=== PATIENT | male | born 1975 | race Caucasian/White ===

== ENCOUNTER 2016-12-26 15:29 | Emergency (ER) | payer OTHER ==
--- NOTE | 2016-12-26 15:42 | ER Document Report ---
Doctor's Note Notes: 12/26/16 15:41 Patient noted ot have hx of binge drinking episodes, ptsd. Notified that EMS was called out for dehydration but patient required 30 minutes of deescalation and Mobile crisis being involved.
--- NOTE | 2016-12-26 16:19 | ER Document Report ---
ED General <DORCAS MISHRA - Last Filed: 12/26/16 23:17> - General Mode of Arrival: Medic Information source: Patient TRAVEL OUTSIDE OF THE U.S. IN LAST 30 DAYS: No <JENNIFER MARTINEZ - Last Filed: 12/28/16 22:46> - General Chief Complaint: Heat Exposure Stated Complaint: WEAKNESS Time Seen by Provider: 12/26/16 16:08 Notes: 41-year-old male found in vehicle asleep [employer]. When EMT got to him he was combative, he did clam down after a few minutes, EMT's talked with him on the scene for 1.5 hours got mobile crisis ([facility]) -they can see him tomorro2 (for mental health cases). Pio called Soledad FLOYD and she does not want to be involved with him anymore. He stated to me that he had been drinking today but will give me no other information. [facility] He states that wasn't right that I came in and talked to him and states God help you, " God will help you." Face is flushed and IV fluid is infusing vital signs are stable. Consult dr. black who states to get a psych consult. Binge drinks per EMT,( PTSD)about 1-2 times per month. Pt states he has been to [facility] , no c/o pain. For physical exam, and when I realized that he was not talking with me, I had PCT Farhana come into the room. (JENNIFER MARTINEZ) - Related Data Allergies/Adverse Reactions: No Known Allergies Allergy (Verified 08/16/15 16:18) Past Medical History - General Information source: Patient - Social History Smoking Status: Never Smoker Chew tobacco use (# tins/day): Yes Frequency of alcohol use: Heavy Drug Abuse: None Family History: Reviewed & Not Pertinent, Other Neurological Medical History: Reports: Hx Seizures GI Medical History: Reports: Hx Gastroesophageal Reflux Disease - SINCE 8 MONTHS , Hx Hiatal Hernia Psychiatric Medical History: Reports: Hx Anxiety - DX 4 MONTHS AGO, Hx Depression - DX 4 MONTHS AGO Comment Only: Hx Post Traumatic Stress Disorder - BEING TESTED Past Surgical History: Reports: Hx Orthopedic Surgery - RT knee, hand, Hx Thyroid Surgery - Immunizations Hx Diphtheria, Pertussis, Tetanus Vaccination: Yes <JENNIFER MARTINEZ - Last Filed: 12/28/16 22:46> Review of Systems - Review of Systems Constitutional: No symptoms reported EENT: No symptoms reported Cardiovascular: No symptoms reported Respiratory: No symptoms reported Gastrointestinal: No symptoms reported Genitourinary: No symptoms reported Male Genitourinary: No symptoms reported Musculoskeletal: No symptoms reported Skin: No symptoms reported Hematologic/Lymphatic: No symptoms reported Neurological/Psychological: See HPI <JENNIFER MARTINEZ - Last Filed: 12/28/16 22:46> Physical Exam <DORCAS MISHRA - Last Filed: 12/26/16 23:17> - Vital signs Interpretation: Normal - General General appearance: Alert, Other - Will not maintain eye contact and does not want to answer questions for the history - HEENT Head: Normocephalic, Atraumatic Eyes: Normal Conjunctiva: Normal - all my God I contacted here and dictate with my unbelievable Pupils: PERRL Nerve palsy: No Mucous membranes: Normal Neck: Supple - Respiratory Respiratory status: No respiratory distress Chest status: Nontender Breath sounds: Normal Chest palpation: Normal - Cardiovascular Rhythm: Regular Heart sounds: Normal auscultation Murmur: No - Abdominal Inspection: Normal Distension: No distension Bowel sounds: Normal Tenderness: Nontender. No: Tender Organomegaly: No organomegaly - Back Back: Normal, Nontender. No: CVA tenderness - Extremities General upper extremity: Normal inspection, Nontender, Normal color, Normal ROM , Normal temperature General lower extremity: Normal inspection, Nontender, Normal color, Normal ROM , Normal temperature, Normal weight bearing. No: Analia's sign - Neurological Neuro grossly intact: Yes Cognition: Normal Orientation: AAOx4 Bird Coma Scale Eye Opening: Spontaneous [place] Coma Scale Verbal: Oriented Bird Coma Scale Motor: Obeys Commands Bird Coma Scale Total: 15 Speech: Normal Motor strength normal: LUE, RUE, LLE, RLE Sensory: Normal - Psychological Associated symptoms: Normal affect, Normal mood - Skin Skin Temperature: Warm Skin Moisture: Dry Skin Color: Normal Skin irregularity: negative: Rash <JENNIFER MARTINEZ - Last Filed: 12/28/16 22:46> - Vital signs Vitals: Resp Pulse Ox 19 95 12/26/16 15:43 12/26/16 15:43 - General Notes: Flushed cheeks (JENNIFER MARTINEZ) Course - Laboratory Result Diagrams: 12/26/16 15:48 12/26/16 15:48 <DORCAS MISHRA - Last Filed: 12/26/16 23:17> - Laboratory Result Diagrams: 12/26/16 15:48 12/26/16 15:48 <JENNIFER MARTINEZ - Last Filed: 12/28/16 22:46> - Re-evaluation Re-evalutation: 12/26/16 23:17 Patient can walk a straight line and talk normally without slurring, clinically sober, continues to ask for things such as food and blankets. Patient can safely be discharged. (DORCAS MISHRA) 12/26/16 16:28 He motioned to an EMT that brought him in and states he never told me anything, that I read the chart. I asked him if he would like, nerve medicine and he said he would love that. He states that I am a liar. The EMT is trying to keep the patient calmed. 12/26/16 17:[address] adams, pt can stay until he is "clinically sober", walking, talking, oriented. He ate dinner, asking for more ativan. 12/26/16 19:05 Care transferred to MONICA Gates. (JENNIFER MARTINEZ) - Vital Signs Vital signs: Temp Pulse Resp BP Pulse Ox 97.4 F 71 16 126/81 H 97 12/26/16 23:14 12/26/16 23:14 12/26/16 23:14 12/26/16 23:14 12/26/16 23:14 - Laboratory Laboratory results interpreted by me: 12/26/16 12/26/16 12/26/16 15:48 15:48 15:48 MCH 25.9 L RDW 16.6 H Sodium 147.4 H Glucose 111 H Creatine Kinase 284 H Urine Protein Salicylates < 1.0 L Acetaminophen < 10 L Serum Alcohol 321 H* 12/26/16 16:55 MCH RDW Sodium Glucose Creatine Kinase Urine Protein 30 H Salicylates Acetaminophen Serum Alcohol Discharge <DORCAS MISHRA - Last Filed: 12/26/16 23:17> <JENNIFER MARTINEZ - Last Filed: 12/28/16 22:46> - Discharge Clinical Impression: Alcohol intoxication Qualifiers: Complication of substance-induced condition: with unspecified complication Qualified Code(s): F10.929 - Alcohol use, unspecified with intoxication, unspecified Condition: Stable Disposition: HOME, SELF-CARE Additional Instructions: Please stop drinking alcohol. Return immediately for any new or worsening symptoms. Follow up with primary care provider, call tomorrow to make followup appointment.
[2016-12-26] MEDS ORDERED: NORMAL SALINE 1000 ML 1,000 ML IV ONE (16:27)
[2016-12-26] MEDS ORDERED: LORAZEPAM INJ 2 MG/1 ML VIAL IV ONE (16:27)
[2016-12-26 16:35] LABS: ALANINE AMINOTRANSFERASE 51 U/L (21-72); ALBUMIN 4.2 g/dL (3.5-5.0); ALKALINE PHOSPHATASE 101 U/L (38-126); ANION GAP 15 (5-19); ASPARTATE AMINO TRANSFERASE 36 U/L (17-59); BILIRUBIN,DIRECT 0.4 mg/dL (0.0-0.4); BLOOD UREA NITROGEN 10 mg/dL (7-20); CALCIUM 8.6 mg/dL (8.4-10.2); CARBON DIOXIDE 25 mmol/L (22-30); CHLORIDE 107 mmol/L (98-107); CREATININE RESULT 1.07 mg/dL (0.52-1.25); GLUCOSE 111 mg/dL (75-110); POTASSIUM 4.4 mmol/L (3.6-5.0); SODIUM 147.4 mmol/L (137-145); TOTAL PROTEIN 7.7 g/dL (6.3-8.2)
[2016-12-26 16:49] LABS: ABSOLUTE BASOPHILS # (AUTO) 0.1 10^3/uL (0.0-0.2); ABSOLUTE EOSINOPHILS # (AUTO) 0.1 10^3/uL (0.0-0.6); ABSOLUTE MONOCYTES (AUTO) 0.5 10^3/uL (0.1-1.4); ABSOLUTE NEUT (AUTO) 5.3 10^3/uL (1.7-8.2); BASOPHILS % (AUTO) 0.6 % (0-2); EOSINOPHILS % (AUTO) 1.2 % (0-6); HEMATOCRIT 43.4 % (37.9-51.0); HEMOGLOBIN 13.9 g/dL (13.5-17.0); HGB HCT DIFFERENCE -1.7; LYMPHOCYTES % (AUTO) 32.9 % (13-45); MEAN CORPUSCULAR HEMOGLOBIN 25.9 pg (27.0-33.4); MEAN CORPUSCULAR VOLUME 81 fl (80-97); MONOCYTES % (AUTO) 5.8 % (3-13); RED BLOOD COUNT 5.35 10^6/uL (4.35-5.55); RED CELL DISTRIBUTION WIDTH 16.6 % (11.5-14.0); SEGMENTED NEUTROPHILS % (AUTO) 59.5 % (42-78)
[2016-12-26 16:57] LABS: ALCOHOL 321 mg/dL (NONE DETECTED)
--- NOTE | 2016-12-26 17:41 | PSYCHOLOGICAL NOTE ---
Psych Note - Psych Note Psych Note: Patient is a 41 year old male who presents via EMS, after [employer] found the patient "passed out" in his parked vehicle. Patient is acutely intoxicated at this time with a BAL of 300+. Patient states he is getting better, but "could use some more pills." Patient does have prior episodes here in the Department due to alcohol related episodes, and PTSD. Patient will be reevaluated closer to clinical sobriety. Will track.
[2016-12-26] MEDS ORDERED: LORAZEPAM 1 MG TABLET PO ONE (17:57)
[2016-12-26 18:27] LABS: URINE BARBITURATES SCREEN NEGATIVE; URINE METHADONE SCREEN NEGATIVE; URINE OPIATES LOW NEGATIVE; URINE PHENCYCLIDINE SCREEN NEGATIVE
[2016-12-26 18:28] LABS: APPEARANCE,URINE CLEAR; BILIRUBIN,URINE NEGATIVE (NEGATIVE); GLUCOSE, URINE NEGATIVE (NEGATIVE); KETONES,URINE NEGATIVE (NEGATIVE); LEUKOCYTE ESTERASE,URINE NEGATIVE (NEGATIVE); NITRITE,URINE NEGATIVE (NEGATIVE); PROTEIN,URINE 30 mg/dL (NEGATIVE); UROBILINOGEN,URINE NEGATIVE mg/dL (<2.0)
--- NOTE | 2016-12-26 22:10 | EKG REPORT ---
SEVERITY:- ABNORMAL ECG - SINUS RHYTHM LEFT ANTERIOR FASCICULAR BLOCK CONSIDER RIGHT VENTRICULAR HYPERTROPHY : Confirmed by: Kathya Carnes MD 26-Dec-2016 22:10:03
[2016-12-26 23:36] VITALS: BP 126/81
== END 2016-12-26 23:25 | disposition home or self-care (01) ==
LOC: ER 15:29
DX: F10.929 Alcohol use, unspecified with intoxication, unspecified (principal); R53.1 Weakness; X32.XXXA Exposure to sunlight, initial encounter
CPT/HCPCS: 93005; 99285; 96374; 36415; 80307 ×4; 82550; 85025; 80053; 81001; 93010; J2060; J7030

== ENCOUNTER 2017-03-11 15:53 | Emergency (ER) | payer OTHER ==
[2017-03-11 16:01] VITALS: BP 145/107
[2017-03-11] MEDS ORDERED: LORAZEPAM INJ 2 MG/1 ML VIAL IV ONE (16:18)
[2017-03-11] MEDS ORDERED: THIAMINE HCL 100 MG, FOLIC ACID 1 MG in NORMAL SALINE 50 ML IV ONE (16:18)
[2017-03-11] MEDS ORDERED: NORMAL SALINE 1000 ML 1,000 ML IV PRN (16:18)
--- NOTE | 2017-03-11 16:23 | ER Document Report ---
ED Medical Screen (RME) - General Chief Complaint: Alcohol Withdrawl Stated Complaint: DETOX AND CHEST PAIN Time Seen by Provider: 03/11/17 16:09 Mode of Arrival: Ambulatory Information source: Patient TRAVEL OUTSIDE OF THE U.S. IN LAST 30 DAYS: No - HPI Patient complains to provider of: Alcohol withdrawal, left-sided chest Onset: This morning Onset/Duration: Gradual Quality of pain: Achy Severity: Moderate Pain Level: 3 Exacerbated by: Denies Relieved by: Denies Similar symptoms previously: Yes Recently seen / treated by doctor: No Notes: 03/11/17 16:22 Patient is a 42-year-old male with history of mental illness and alcohol dependence, who presents to the emergency room requesting assistance with detox from alcohol, states he is set to go to a rehab program [place] of state on [place] of this week, he attempted to stop drinking on his own at home over the last 24 hours, however this morning he developed withdrawal symptoms including shakiness, left-sided chest pain radiating down his left arm, so he had a drink approximately 1 hour prior to coming to the emergency room with friends who encouraged him to come so that he can get stabilized to go to rehab in a few days - Related Data Allergies/Adverse Reactions: No Known Allergies Allergy (Verified 03/11/17 16:01) Past Medical History Neurological Medical History: Reports: Hx Seizures Renal/ Medical History: Denies: Hx Peritoneal Dialysis GI Medical History: Reports: Hx Gastroesophageal Reflux Disease - SINCE 8 MONTHS , Hx Hiatal Hernia Psychiatric Medical History: Reports: Hx Anxiety - DX 4 MONTHS AGO, Hx Depression - DX 4 MONTHS AGO Comment Only: Hx Post Traumatic Stress Disorder - BEING TESTED Past Surgical History: Reports: Hx Orthopedic Surgery - RT knee, hand, Hx Thyroid Surgery - Immunizations Hx Diphtheria, Pertussis, Tetanus Vaccination: Yes Physical Exam - Vital signs Vitals: Temp Pulse Resp BP Pulse Ox 98.9 F 108 H 20 145/107 H 96 03/11/17 16:01 03/11/17 16:01 03/11/17 16:01 03/11/17 16:01 03/11/17 16:01 Course - Vital Signs Vital signs: Temp Pulse Resp BP Pulse Ox 98.9 F 108 H 20 145/107 H 96 03/11/17 16:01 03/11/17 16:01 03/11/17 16:01 03/11/17 16:01 03/11/17 16:01
[2017-03-11 16:50] LABS: ABSOLUTE LYMPHOCYTES (AUTO) 2.2 10^3/uL (0.5-4.7); ABSOLUTE MONOCYTES (AUTO) 0.4 10^3/uL (0.1-1.4); ABSOLUTE NEUT (AUTO) 5.1 10^3/uL (1.7-8.2); BASOPHILS % (AUTO) 0.5 % (0-2); EOSINOPHILS % (AUTO) 0.3 % (0-6); HEMATOCRIT 42.3 % (37.9-51.0); HEMOGLOBIN 14.1 g/dL (13.5-17.0); LYMPHOCYTES % (AUTO) 28.8 % (13-45); MEAN CORPUSCULAR HEMOGLOBIN 27.5 pg (27.0-33.4); MEAN CORPUSCULAR HGB CONC 33.4 g/dL (32.0-36.0); MEAN CORPUSCULAR VOLUME 82 fl (80-97); MONOCYTES % (AUTO) 4.8 % (3-13); RED BLOOD COUNT 5.14 10^6/uL (4.35-5.55); RED CELL DISTRIBUTION WIDTH 20.5 % (11.5-14.0); SEGMENTED NEUTROPHILS % (AUTO) 65.6 % (42-78); WHITE BLOOD COUNT 7.7 10^3/uL (4.0-10.5)
[2017-03-11 17:11] LABS: ALANINE AMINOTRANSFERASE 56 U/L (21-72); ALBUMIN 5.1 g/dL (3.5-5.0); ALKALINE PHOSPHATASE 94 U/L (38-126); ANION GAP 19 (5-19); ASPARTATE AMINO TRANSFERASE 46 U/L (17-59); BILIRUBIN,DIRECT 0.3 mg/dL (0.0-0.4); BILIRUBIN,TOTAL 0.9 mg/dL (0.2-1.3); BLOOD UREA NITROGEN 13 mg/dL (7-20); CALCIUM 9.4 mg/dL (8.4-10.2); CARBON DIOXIDE 23 mmol/L (22-30); CHLORIDE 101 mmol/L (98-107); CREATINE KINASE 389 U/L (55-170); CREATININE RESULT 1.08 mg/dL (0.52-1.25); GLUCOSE 140 mg/dL (75-110); SODIUM 142.7 mmol/L (137-145); TOTAL PROTEIN 8.5 g/dL (6.3-8.2)
[2017-03-11 17:20] LABS: ALCOHOL 389 mg/dL (NONE DETECTED)
[2017-03-11 17:22] LABS: CREATINE KINASE MB 2.19 ng/mL (<4.55)
[2017-03-11 17:23] LABS: TROPONIN I < 0.012 ng/mL
--- NOTE | 2017-03-11 17:39 | RADIOLOGY REPORT (SQ) ---
EXAM DESCRIPTION: CT HEAD WITHOUT COMPLETED DATE/TIME: 03/11/2017 5:26 pm REASON FOR STUDY: MITCHELL COMPARISON: 2014 TECHNIQUE: Axial images acquired through the brain without intravenous contrast. Images reviewed wi th bone, brain and subdural windows. Images stored on PACS. All CT scanners at this facility use dose modulation, iterative reconstruction, and/or weight based d osing when appropriate to reduce radiation dose to as low as reasonably achievable (ALARA). [facility]: Dose Right [facility]: CareDose [facility]: Dose Right [facility]: Teradose 4D [facility]: Smart Woop!Wear RADIATION DOSE: Up-to-date CT equipment and radiation dose reduction techniques were employed. CTDIv ol: 64.6 mGy. DLP: 1163 mGy-cm. mGy. LIMITATIONS: None. FINDINGS: VENTRICLES: Normal size and contour. CEREBRUM: No masses. No hemorrhage. No midline shift. Normal seaman/white matter differentiation. N o evidence for acute infarction. CEREBELLUM: No masses. No hemorrhage. No alteration of density. No evidence for acute infarction. EXTRAAXIAL SPACES: No fluid collections. No masses. ORBITS AND GLOBE: No intra- or extraconal masses. Normal contour of globe without masses. CALVARIUM: No fracture. PARANASAL SINUSES: No fluid or mucosal thickening. SOFT TISSUES: No mass or hematoma. OTHER: No other significant finding. IMPRESSION: NORMAL BRAIN CT WITHOUT CONTRAST. TECHNICAL DOCUMENTATION: JOB ID: [id number] Quality ID # [id number]: Final reports with documentation of one or more dose reduction techniques (e.g., Au tomated exposure control, adjustment of the mA and/or kV according to patient size, use of iterative reconstruction technique) 2010 [employer]- All Rights Reserved
--- NOTE | 2017-03-11 17:39 | RADIOLOGY REPORT (SQ) ---
EXAM DESCRIPTION: CHEST PA/LAT COMPLETED DATE/TIME: 03/11/2017 5:29 pm REASON FOR STUDY: palpitations COMPARISON: 01/20/2013 EXAM PARAMETERS: NUMBER OF VIEWS: two views TECHNIQUE: Digital Frontal and Lateral radiographic views of the chest acquired. RADIATION DOSE: NA LIMITATIONS: none FINDINGS: LUNGS AND PLEURA: No opacities, masses or pneumothorax. No pleural effusion. MEDIASTINUM AND HILAR STRUCTURES: No masses or contour abnormalities. HEART AND VASCULAR STRUCTURES: Heart normal size. No evidence for failure. BONES: No acute findings. HARDWARE: None in the chest. OTHER: No other significant finding. IMPRESSION: NO SIGNIFICANT RADIOGRAPHIC FINDING IN THE CHEST. TECHNICAL DOCUMENTATION: JOB ID: [id number] [employer]- All Rights Reserved
--- NOTE | 2017-03-11 18:06 | ER Document Report ---
ED Substance Abuse / Acc. OD - General Mode of Arrival: Ambulatory Information source: Patient TRAVEL OUTSIDE OF THE [place]. IN LAST 30 DAYS: No - HPI Patient complains to provider of: Alcohol abuse Onset: Other - 2 weeks Onset/Duration: Persistent Quality of pain: Achy Pain Level: 2 Situational problems related to: Significant other Overdose of: Alcohol Associated Symptoms: Nausea/vomiting, Headache, Other - numb sensation. denies : Fever/chills/sweaty, Chest pain/discomfort, Hurts to breathe, Vomiting blood Similar symptoms previously: Yes - detox Recently seen / treated by doctor: No <AMY LEDESMA - Last Filed: 03/11/17 21:36> <ALONSO CUMMINS - Last Filed: 03/11/17 22:08> - General Chief Complaint: Alcohol Withdrawl Stated Complaint: DETOX AND CHEST PAIN Time Seen by Provider: 03/11/17 16:09 Notes: Patient presents requesting detox. Patient states that he has been drinking 2 bottles of wine a day for the past several weeks. Patient does report a recent breakup with his significant other that started 6 weeks ago. Patient states that he is attempting to get into an inpatient detox facility in [place] but he does not fly out until Sunday of next week. Patient reports that around 11:00 today he had some palpitations and he felt like his left arm and left leg were numb. Patient states the numbness sensation lasted for 1 hour and then resolved. Patient reports he did vomit one time earlier today but has not had any vomiting since then. Patient complains of right-sided headache pain that started yesterday and has been off and on. (AMY LEDESMA) - Related Data Allergies/Adverse Reactions: No Known Allergies Allergy (Verified 03/11/17 16:01) Past Medical History - General Information source: Patient - Social History Smoking Status: Never Smoker Chew tobacco use (# tins/day): No Frequency of alcohol use: Heavy Drug Abuse: None Occupation: none Lives with: Alone Family History: Reviewed & Not Pertinent, Other Neurological Medical History: Reports: Hx Seizures Renal/ Medical History: Denies: Hx Peritoneal Dialysis GI Medical History: Reports: Hx Gastroesophageal Reflux Disease - SINCE 8 MONTHS , Hx Hiatal Hernia Psychiatric Medical History: Reports: Hx Anxiety - DX 4 MONTHS AGO, Hx Depression - DX 4 MONTHS AGO Comment Only: Hx Post Traumatic Stress Disorder - BEING TESTED Past Surgical History: Reports: Hx Orthopedic Surgery - RT knee, hand, Hx Thyroid Surgery - Immunizations Hx Diphtheria, Pertussis, Tetanus Vaccination: Yes <AMY LEDESMA - Last Filed: 03/11/17 21:36> Review of Systems - Review of Systems Constitutional: No symptoms reported. denies: Fever, Recent illness EENT: No symptoms reported Cardiovascular: Palpitations. denies: Chest pain, Dizziness Respiratory: No symptoms reported. denies: Cough, Short of breath Gastrointestinal: Nausea, Vomiting. denies: Abdominal pain, Diarrhea Genitourinary: No symptoms reported Male Genitourinary: No symptoms reported Musculoskeletal: No symptoms reported. denies: Back pain Skin: No symptoms reported Hematologic/Lymphatic: No symptoms reported Neurological/Psychological: Headaches, Numbness - for 1 hour to LUE, LLE. denies: Weakness <AMY LEDESMA - Last Filed: 03/11/17 21:36> Physical Exam - General General appearance: Appears well, Alert In distress: None - HEENT Head: Normocephalic, Atraumatic Eyes: Normal Conjunctiva: Normal Extraocular movements intact: Yes Eyelashes: Normal Pupils: PERRL Ears: Normal External canal: Normal Sinus: Normal Nasal: Normal Mouth/Lips: Normal Mucous membranes: Normal Pharynx: Normal Neck: Normal, Supple. No: Lymphadenopathy - Respiratory Respiratory status: No respiratory distress Chest status: Nontender Breath sounds: Normal. No: Rales, Rhonchi, Stridor, Wheezing Chest palpation: Normal - Cardiovascular Rhythm: Tachycardia Heart sounds: S1 appreciated, S2 appreciated Murmur: No - Abdominal Inspection: Normal Distension: No distension Bowel sounds: Normal Tenderness: Nontender - Back Back: Normal, Nontender. No: CVA tenderness, Vertebra tenderness - Extremities General upper extremity: Normal inspection, Normal ROM, Normal strength General lower extremity: Normal inspection, Normal ROM, Normal strength - Neurological Neuro grossly intact: Yes Cognition: Normal Orientation: AAOx4 [place] Coma Scale Eye Opening: Spontaneous Bird Coma Scale Verbal: Oriented Bird Coma Scale Motor: Obeys Commands [place] Coma Scale Total: 15 Speech: Normal. No: Dysarthria Cranial nerves: Normal. No: Facial palsy, Tongue deviation Cerebellar coordination: Normal, Heel-martinez, Finger-nose rhombey, Rapid alt. movements. 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 No: Weakness, Hemiplegia - Psychological Associated symptoms: Other - occasional pressured speech - Skin Skin Temperature: Warm Skin Moisture: Dry Skin Color: Normal <AMY LEDESMA - Last Filed: 03/11/17 21:36> Course - Laboratory Result Diagrams: 03/11/17 16:30 03/11/17 16:30 <AMY LEDESMA - Last Filed: 03/11/17 21:36> - Laboratory Result Diagrams: 03/11/17 16:30 03/11/17 16:30 <ALONSO CUMMINS - Last Filed: 03/11/17 22:08> - Re-evaluation Re-evalutation: 03/11/17 20:44 Patient updated regarding plan of care. Patient denies any complaints at present. Bedside report and handoff given to Maris Cummins CLINICAL LEADER (AMY LEDESMA) 03/11/17 22:07 Has a friend , Erick Styleser at the bedside whom has agreed to take the patient home and be responsible for him until 8:00 in the morning when he will follow- up with [facility]. Mental health resource sheet given to patient follow-up. ( ALONSO CUMMINS) - Vital Signs Vital signs: Temp Pulse Resp BP Pulse Ox 98.9 F 108 H 20 145/107 H 96 03/11/17 16:01 03/11/17 16:01 03/11/17 16:01 03/11/17 16:01 03/11/17 16:01 - Laboratory Laboratory results interpreted by me: 03/11/17 03/11/17 03/11/17 16:30 16:30 16:30 RDW 20.5 H Glucose 140 H Creatine Kinase 389 H Total Protein 8.5 H Albumin 5.1 H TSH 4.69 H Urine Protein Urine Blood Salicylates < 1.0 L Acetaminophen < 10 L Serum Alcohol 389 H* 03/11/17 17:38 RDW Glucose Creatine Kinase Total Protein Albumin TSH Urine Protein 30 H Urine Blood SMALL H Salicylates Acetaminophen Serum Alcohol Discharge <AMY LEDESMA - Last Filed: 03/11/17 21:36> <ALONSO CUMMINS - Last Filed: 03/11/17 22:08> - Discharge Clinical Impression: Alcohol abuse Condition: Stable Disposition: HOME, SELF-CARE Additional Instructions: Acute Alcohol Intoxication Your evaluation revealed very high levels of alcohol. You can from drinking a large amount of alcohol rapidly! Further, there's the risk of falls , traffic accidents, and fights. A high portion (about 50 percent) of the serious injuries seen in hospital emergency rooms are caused by alcohol. Alcohol overdosage is usually due to an underlying emotional or psychiatric problem. You may benefit from counselling. If "binge" drinking is an ongoing problem for you, or if you drink ANY AMOUNT of alcohol EVERY day, you most likely have a tendency to alcoholism. You should avoid alcohol totally. We can refer you for treatment. Persons with alcohol problems are often also prone to other addictions -- you should discuss any use of medications or drugs with the doctor. You should be watched at home for the next several hours by someone who has not been drinking. Get extra fluids for the next 24 hours. Call the doctor if there is repeated vomiting, increasing headache, decreasing level of alertness, or any other worsening. Depression Your evaluation reveals that you have mental depression. While symptoms may be vague, they often include disturbance of sleep, fatigue, loss of appetite , and general loss of interest in life. While depression may be a side effect of drugs, or a reaction to a major change in your life, many cases have no known cause. If depression is acute, and related to a major loss in your life, you can expect it to clear completely with time. If you have been depressed a long time , are prone to repeated bouts of depression or low mood, or have been thinking of suicide, get help. Depression can be treated with anti-depressant medication and counselling. Long-term depression will often take a few weeks to clear, even with appropriate medication. Follow-up care is important. Contact your physician, the hospital emergency center, crisis line, or your counsellor if you are losing control or having self-destructive thoughts. Please look towards your methodist family for support and follow through with your residential plans. You have been provided a list of resources to assist you in following up locally should you chose to do so. Please return if your symptoms worsen. Follow up with [facility] at 8:00 in the morning. Please do not drink alcohol tonight. Referrals: [facility] [Provider Group] - Follow up as needed
--- NOTE | 2017-03-11 18:13 | ER Document Report ---
ED Psych Disorder / Suicide - General Chief Complaint: Alcohol Withdrawl Stated Complaint: DETOX AND CHEST PAIN Time Seen by Provider: 03/11/17 16:09 Mode of Arrival: Ambulatory Information source: Patient, [facility] Records TRAVEL OUTSIDE OF THE [place] IN LAST 30 DAYS: No - HPI Onset: Other Onset was: Cannot confirm Suicide Risk Factors: Depressed, Frightened friends/family, Male, Substance abuse - ETOH Situational problems related to: Significant other - recent break up Normal mood: Yes Associated symptoms: Normal affect, Normal mood, Anxious, Depressed - per patient Similar symptoms previously: Yes Recently seen / treated by doctor: Yes Notes: Patient is a 42 year old male who presents with friends requesting assistance with anxiety, related to ETOH withdrawal. Patient was referred for consultation due to reporting history of SI, and current depression. Patient states he has had passive thoughts in the past, but denies current thoughts. Patient states he is flying to [place] Sunday to reside in a 6 month residential alcohol program. Patient states this is a [facility] based program, secured by his restorationist. Patient states he relapsed with alcohol after a difficult breakup, and wanted to come here for detox purposes. Patient endorses depression, some of which he states is from his experiences, and some from life stressors, like the break up. Patient states he is not suicidal, nor would he attempt to harm himself. Patient reports he has numerous support individuals and feels safe in his home environment, as well as maintaining until his flight Sunday. Patient denies any prior suicide attempts. Patient endorses daily ETOH use. Patient is A&O. Mood is euthymic with normal, pleasant affect. Patient denies suicidal/homicidal ideations intent, plan, or means. Patient denies A/V H; delusions not noted. Thought processes were organized. Conversational speech was slurred. Intellectual abilities were estimated to be under the influence ( BAL 300s). Attention and focus were poor. Insight, judgment, and impulse control were poor to fair. Unspecified Alcohol Use Disorder Unspecified Depressive Disorder Patient is psychiatrically cleared for discharge. Patient is strongly encouraged to follow up with his residential program and to utilize the support of his restorationist family, which he states is his preference. Patient does not meet criteria for IVC per the [id number] as he denies SI/HI and is not experiencing command hallucinations. I consulted with Dr. Hong in regards to the care and management of this patient. ED Provider is in agreement with disposition and recommendations. - Related Data Allergies/Adverse Reactions: No Known Allergies Allergy (Verified 03/11/17 16:01) Past Medical History - General Information source: Patient - Social History Smoking Status: Never Smoker Chew tobacco use (# tins/day): No Frequency of alcohol use: Heavy Drug Abuse: None Family History: Reviewed & Not Pertinent, Other Patient has suicidal ideation: No Patient has homicidal ideation: No Neurological Medical History: Reports: Hx Seizures Renal/ Medical History: Denies: Hx Peritoneal Dialysis GI Medical History: Reports: Hx Gastroesophageal Reflux Disease - SINCE 8 MONTHS , Hx Hiatal Hernia Psychiatric Medical History: Reports: Hx Anxiety - DX 4 MONTHS AGO, Hx Depression - DX 4 MONTHS AGO Comment Only: Hx Post Traumatic Stress Disorder - BEING TESTED Past Surgical History: Reports: Hx Orthopedic Surgery - RT knee, hand, Hx Thyroid Surgery - Immunizations Hx Diphtheria, Pertussis, Tetanus Vaccination: Yes Physical Exam - Vital signs Vitals: Temp Pulse Resp BP Pulse Ox 98.9 F 108 H 20 145/107 H 96 03/11/17 16:01 03/11/17 16:01 03/11/17 16:01 03/11/17 16:01 03/11/17 16:01 Course - Vital Signs Vital signs: Temp Pulse Resp BP Pulse Ox 98.9 F 108 H 20 145/107 H 96 03/11/17 16:01 03/11/17 16:01 03/11/17 16:01 03/11/17 16:01 03/11/17 16:01 - Laboratory Result Diagrams: 03/11/17 16:30 03/11/17 16:30 Laboratory results interpreted by me: 03/11/17 03/11/17 03/11/17 16:30 16:30 16:30 RDW 20.5 H Glucose 140 H Creatine Kinase 389 H Total Protein 8.5 H Albumin 5.1 H TSH 4.69 H Salicylates < 1.0 L Acetaminophen < 10 L Serum Alcohol 389 H* Discharge - Discharge Clinical Impression: Alcohol abuse Condition: Stable Disposition: HOME, SELF-CARE Additional Instructions: Acute Alcohol Intoxication Your evaluation revealed very high levels of alcohol. You can from drinking a large amount of alcohol rapidly! Further, there's the risk of falls , traffic accidents, and fights. A high portion (about 50 percent) of the serious injuries seen in hospital emergency rooms are caused by alcohol. Alcohol overdosage is usually due to an underlying emotional or psychiatric problem. You may benefit from counselling. If "binge" drinking is an ongoing problem for you, or if you drink ANY AMOUNT of alcohol EVERY day, you most likely have a tendency to alcoholism. You should avoid alcohol totally. We can refer you for treatment. Persons with alcohol problems are often also prone to other addictions -- you should discuss any use of medications or drugs with the doctor. You should be watched at home for the next several hours by someone who has not been drinking. Get extra fluids for the next 24 hours. Call the doctor if there is repeated vomiting, increasing headache, decreasing level of alertness, or any other worsening. Depression Your evaluation reveals that you have mental depression. While symptoms may be vague, they often include disturbance of sleep, fatigue, loss of appetite , and general loss of interest in life. While depression may be a side effect of drugs, or a reaction to a major change in your life, many cases have no known cause. If depression is acute, and related to a major loss in your life, you can expect it to clear completely with time. If you have been depressed a long time , are prone to repeated bouts of depression or low mood, or have been thinking of suicide, get help. Depression can be treated with anti-depressant medication and counselling. Long-term depression will often take a few weeks to clear, even with appropriate medication. Follow-up care is important. Contact your physician, the hospital emergency center, crisis line, or your counsellor if you are losing control or having self-destructive thoughts. Please look towards your restorationist family for support and follow through with your residential plans. You have been provided a list of resources to assist you in following up locally should you chose to do so. Please return if your symptoms worsen. Referrals: [facility] [Provider Group] - Follow up as needed
[2017-03-11 18:23] LABS: APPEARANCE,URINE CLEAR; BILIRUBIN,URINE NEGATIVE (NEGATIVE); GLUCOSE, URINE NEGATIVE (NEGATIVE); KETONES,URINE NEGATIVE (NEGATIVE); LEUKOCYTE ESTERASE,URINE NEGATIVE (NEGATIVE); NITRITE,URINE NEGATIVE (NEGATIVE); PROTEIN,URINE 30 mg/dL (NEGATIVE); URINE SPECIFIC GRAVITY 1.009; UROBILINOGEN,URINE NEGATIVE mg/dL (<2.0)
[2017-03-11 18:52] LABS: FREE T3 3.33 pg/mL (2.77-5.27)
[2017-03-11 18:52] LABS: URINE BARBITURATES SCREEN NEGATIVE; URINE METHADONE SCREEN NEGATIVE; URINE OPIATES LOW NEGATIVE; URINE PHENCYCLIDINE SCREEN NEGATIVE
--- NOTE | 2017-03-12 03:32 | EKG REPORT ---
SEVERITY:- ABNORMAL ECG - SINUS TACHYCARDIA LEFT ANTERIOR FASCICULAR BLOCK : Confirmed by: Kathya Carnes MD 12-Mar-2017 03:31:27
== END 2017-03-11 22:17 | disposition home or self-care (01) ==
LOC: ER 15:53
DX: F10.10 Alcohol abuse, uncomplicated (principal); R20.0 Anesthesia of skin; R11.2 Nausea with vomiting, unspecified; R51 Headache; R00.2 Palpitations; F32.9 Major depressive disorder, single episode, unspecified
CPT/HCPCS: 93005; 99285; 96361; 96374; 96375; 36415; 84439; 82553; 80307 ×4; 82550; 83735; 84443; 85025; 80053; 81001; 84484; 84481; 71020; 70450; 93010; J3490; J2060; J3411; J7030

== ENCOUNTER 2018-06-10 15:40 | Emergency (ER) | payer OTHER ==
[2018-06-10] MEDS ORDERED: LORAZEPAM 1 MG TABLET PO ONE (17:09)
--- NOTE | 2018-06-10 17:10 | ER Document Report ---
ED Medical Screen (RME) - General Chief Complaint: Alcohol Withdrawl Stated Complaint: ETOH Time Seen by Provider: 06/10/18 17:08 Notes: 43 years old male with posttraumatic stress syndrome, was a [employer], going through a very difficult time. He thinks he is dying, at times he said he wanted end his life. Severely depressed and anxious. Using alcohol, had not washed himself for nearly 10 days. TRAVEL OUTSIDE OF THE [place] IN LAST 30 DAYS: No - Related Data Allergies/Adverse Reactions: No Known Allergies Allergy (Verified 06/10/18 15:48) Past Medical History - Social History Chew tobacco use (# tins/day): No Frequency of alcohol use: Heavy Drug Abuse: None Neurological Medical History: Reports: Hx Seizures Renal/ Medical History: Denies: Hx Peritoneal Dialysis GI Medical History: Reports: Hx Gastroesophageal Reflux Disease - SINCE 8 MONTHS , Hx Hiatal Hernia Psychiatric Medical History: Reports: Hx Anxiety - DX 4 MONTHS AGO, Hx Depression Comment Only: Hx Post Traumatic Stress Disorder - BEING TESTED Past Surgical History: Reports: Hx Orthopedic Surgery - RT knee, hand, Hx Thyroid Surgery - Immunizations Hx Diphtheria, Pertussis, Tetanus Vaccination: Yes Physical Exam - Vital signs Vitals: Temp Pulse Resp BP Pulse Ox 98.2 F 123 H 18 155/107 H 96 06/10/18 15:53 06/10/18 15:53 06/10/18 15:53 06/10/18 15:53 06/10/18 15:53 Course - Vital Signs Vital signs: Temp Pulse Resp BP Pulse Ox 98.2 F 123 H 18 155/107 H 96 06/10/18 15:53 06/10/18 15:53 06/10/18 15:53 06/10/18 15:53 06/10/18 15:53
[2018-06-10] MEDS ORDERED: LORAZEPAM INJ 2 MG/1 ML VIAL IV ONE (17:31)
[2018-06-10 17:36] LABS: ABSOLUTE EOSINOPHILS # (AUTO) 0.1 10^3/uL (0.0-0.6); ABSOLUTE LYMPHOCYTES (AUTO) 2.9 10^3/uL (0.5-4.7); ABSOLUTE MONOCYTES (AUTO) 0.5 10^3/uL (0.1-1.4); ABSOLUTE NEUT (AUTO) 3.5 10^3/uL (1.7-8.2); BASOPHILS % (AUTO) 0.6 % (0-2); EOSINOPHILS % (AUTO) 0.9 % (0-6); HEMATOCRIT 44.3 % (37.9-51.0); HEMOGLOBIN 15.2 g/dL (13.5-17.0); LYMPHOCYTES % (AUTO) 41.4 % (13-45); MEAN CORPUSCULAR HEMOGLOBIN 29.6 pg (27.0-33.4); MEAN CORPUSCULAR HGB CONC 34.3 g/dL (32.0-36.0); MEAN CORPUSCULAR VOLUME 87 fl (80-97); MONOCYTES % (AUTO) 6.7 % (3-13); PLATELET COUNT 144 10^3/uL (150-450); RED BLOOD COUNT 5.12 10^6/uL (4.35-5.55); RED CELL DISTRIBUTION WIDTH 15.3 % (11.5-14.0); SEGMENTED NEUTROPHILS % (AUTO) 50.4 % (42-78); TOTAL CELLS COUNTED % (AUTO) 100 %
[2018-06-10 17:43] LABS: APPEARANCE,URINE CLEAR; BILIRUBIN,URINE NEGATIVE (NEGATIVE); COLOR,URINE COLORLESS; GLUCOSE, URINE NEGATIVE (NEGATIVE); KETONES,URINE NEGATIVE (NEGATIVE); LEUKOCYTE ESTERASE,URINE NEGATIVE (NEGATIVE); NITRITE,URINE NEGATIVE (NEGATIVE); PROTEIN,URINE 30 mg/dL (NEGATIVE); URINE SPECIFIC GRAVITY 1.003; UROBILINOGEN,URINE NEGATIVE mg/dL (<2.0)
[2018-06-10 17:50] LABS: ALANINE AMINOTRANSFERASE 69 U/L (21-72); ALBUMIN 5.2 g/dL (3.5-5.0); ALKALINE PHOSPHATASE 99 U/L (38-126); ASPARTATE AMINO TRANSFERASE 82 U/L (17-59); BILIRUBIN,DIRECT 0.3 mg/dL (0.0-0.4); BILIRUBIN,TOTAL 1.3 mg/dL (0.2-1.3); BLOOD UREA NITROGEN 13 mg/dL (7-20); CALCIUM 9.6 mg/dL (8.4-10.2); GLUCOSE 115 mg/dL (75-110); POTASSIUM 4.9 mmol/L (3.6-5.0); TOTAL PROTEIN 9.2 g/dL (6.3-8.2)
[2018-06-10 17:53] LABS: URINE AMPHETAMINES SCREEN NEGATIVE; URINE BARBITURATES SCREEN NEGATIVE; URINE BENZODIAZEPINES SCREEN NEGATIVE; URINE COCAINE SCREEN NEGATIVE; URINE MARIJUANA (THC) SCREEN NEGATIVE; URINE METHADONE SCREEN NEGATIVE; URINE PHENCYCLIDINE SCREEN NEGATIVE
[2018-06-10 17:54] LABS: CARBON DIOXIDE 21 mmol/L (22-30); CHLORIDE 100 mmol/L (98-107); SODIUM 143.6 mmol/L (137-145)
--- NOTE | 2018-06-10 17:54 | ER Document Report ---
ED General - General TRAVEL OUTSIDE OF THE [place] IN LAST 30 DAYS: No <SHAHLA BLACK - Last Filed: 06/10/18 22:42> <TYLER SALDANA - Last Filed: 06/11/18 11:23> <SHELLY MONTAGUE - Last Filed: 06/11/18 11:47> - General Chief Complaint: Alcohol Withdrawl Stated Complaint: ETOH Time Seen by Provider: 06/10/18 17:08 Notes: 43-year-old male presents with heavy alcohol use for the past 2 weeks in the setting of PTSD anxiety and depression with thoughts of ending his life but no plan. He says "I know I am in alcohol withdrawal so I came here." His last drink was 2 hours ago and he received 2 of Ativan at triage. (SHAHLA BLACK) - Related Data Allergies/Adverse Reactions: No Known Allergies Allergy (Verified 06/10/18 15:48) Past Medical History - Social History Smoking Status: Never Smoker Chew tobacco use (# tins/day): No Frequency of alcohol use: Heavy Drug Abuse: None Family History: Reviewed & Not Pertinent, Other Patient has suicidal ideation: No Patient has homicidal ideation: No Neurological Medical History: Reports: Hx Seizures Renal/ Medical History: Denies: Hx Peritoneal Dialysis GI Medical History: Reports: Hx Gastroesophageal Reflux Disease - SINCE 8 MONTHS , Hx Hiatal Hernia Psychiatric Medical History: Reports: Hx Anxiety - DX 4 MONTHS AGO, Hx Depression Comment Only: Hx Post Traumatic Stress Disorder - BEING TESTED Past Surgical History: Reports: Hx Orthopedic Surgery - RT knee, hand, Hx Thyroid Surgery - Immunizations Hx Diphtheria, Pertussis, Tetanus Vaccination: Yes <SHAHLA BLACK - Last Filed: 06/10/18 22:42> Review of Systems <SHAHLA BLACK - Last Filed: 06/10/18 22:42> <TYLER SALDANA - Last Filed: 06/11/18 11:23> <SHELLY MONTAGUE - Last Filed: 06/11/18 11:47> - Review of Systems Notes: REVIEW OF SYSTEMS GEN: Denies fever, chills, weight loss ENT: Denies sore throat, nasal discharge, ear pain EYES: Denies blurry vision, eye pain, discharge CV: Denies chest pain, palpitations, edema RESP: Denies cough, shortness of breath, wheezing GI: Denies abdominal pain, nausea, vomiting, diarrhea MSK: Denies joint pain/swelling, edema, SKIN: Denies rash, skin lesions LYMPH: Denies swollen glands/lymph nodes NEURO: Denies headache, focal weakness or numbness, dizziness PSYCH: Pressured anxiety suicidal thoughts alcohol abuse PHYSICAL EXAMINATION General: No acute distress, well-nourished poorly groomed Head: Atraumatic, normocephalic ENT: Mouth normal, oropharynx moist, no exudates or tonsillar enlargement Eyes: Conjunctiva normal, pupils equal, lids normal Neck: No JVD, supple, no guarding CVS: Tachycardic rate, regular rhythm, no murmurs Resp: No resp distress, equal and normal breath sounds bilaterally GI: Nondistended, soft, no tenderness to palpation, no rebound or guarding Ext: No deformities, no edema, normal range of motion in upper and lower ext Back: No CVA or midline TTP Skin: No rash, warm Lymphatic: No lymphadeopathy noted Neuro: Tongue tremor. Awake, alert. Face symmetric. GCS 15. (SHAHLA BLACK) - Vital signs Vitals: Temp Pulse Resp BP Pulse Ox 98.2 F 123 H 18 155/107 H 96 06/10/18 15:53 06/10/18 15:53 06/10/18 15:53 06/10/18 15:53 06/10/18 15:53 Course - Laboratory Result Diagrams: 06/10/18 17:05 06/10/18 17:05 <SHAHLA BLACK - Last Filed: 06/10/18 22:42> - Laboratory Result Diagrams: 06/10/18 17:05 06/10/18 17:05 <TYLER SALDANA - Last Filed: 06/11/18 11:23> - Laboratory Result Diagrams: 06/10/18 17:05 06/10/18 17:05 <SHELLY MONTAGUE - Last Filed: 06/11/18 11:47> - Re-evaluation Re-evalutation: 06/10/18 17:53 43-year-old male with PTSD anxiety and depression high risk for suicide proceeding with alcohol heavy use with early withdrawal. No evidence of delirium or coingestions. Full workup was ordered at triage, on my assessment his heart rate has decreased to the 100 range and he is no longer tremulous. We will do as needed Ativan, ordered psych consult, will placed on IVC paperwork for now. 06/10/18 20:01 Patient's workup is unremarkable and he is more calm initially at around 7 PM after receiving Ativan IV. His heart rate is normal. I was approached again at 8 PM by nursing that he is being more aggressive. On assessment he is not delirious but is angry and agitated. We will give Frank IM for behavioral control and observe closely. Forgot to do IVC here 06/10/18 21:38 Patient's labs showed anion gap. This is likely alcoholic ketoacidosis and will be treated with p.o. carbohydrates as well as some dextrose containing IV fluids. 06/10/18 22:42 Sleeping comfortable he on D5 drip. Ordered CY. Stable for psych consult in the morning. (SHAHLA BLACK) - Vital Signs Vital signs: Temp Pulse Resp BP Pulse Ox 98.0 F 70 16 120/65 100 06/11/18 09:17 06/11/18 09:17 06/11/18 09:17 06/11/18 09:17 06/11/18 09:17 - Laboratory Laboratory results interpreted by me: 06/10/18 06/10/18 06/10/18 17:05 17:05 17:05 RDW 15.3 H Plt Count 144 L Carbon Dioxide 21 L Anion Gap 23 H Glucose 115 H AST 82 H Total Protein 9.2 H Albumin 5.2 H Urine Protein 30 H Urine Blood SMALL H Salicylates < 1.0 L Acetaminophen < 10 L Serum Alcohol 427 H* Critical Care Note - Critical Care Note Total time excluding time spent on procedures (mins): 31 <SHAHLA BLACK - Last Filed: 06/10/18 22:42> <TYLER SALDANA - Last Filed: 06/11/18 11:23> <SHELLY MONTAGUE - Last Filed: 06/11/18 11:47> - Critical Care Note Comments: The above patient is critically ill. Not including procedures, but including direct re-evaluations, speaking with patient and/or consultants, interpreting results, and documenting, I spent the total amount of minute listed listed above on critical care time (SHAHLA BLACK) Discharge <SHAHLA BLACK - Last Filed: 06/10/18 22:42> <TYLER SALDANA - Last Filed: 06/11/18 11:23> <SHELLY MONTAGUE - Last Filed: 06/11/18 11:47> - Discharge Clinical Impression: Depression (emotion), Alcohol intoxication Alcohol withdrawal Qualifiers: Complication of substance-induced condition: uncomplicated Qualified Code(s): F10.230 - Alcohol dependence with withdrawal, uncomplicated Condition: Stable Disposition: HOME, SELF-CARE Additional Instructions: ACUTE ALCOHOL INTOXICATION and ALCOHOL ABUSE: (Due to reported relapse after sobriety for 8 months) Your evaluation revealed very high levels of alcohol. You can from drinking a large amount of alcohol rapidly! Further, there's the risk of falls , traffic accidents, and fights. A high portion (about 50 percent) of the serious injuries seen in hospital emergency rooms are caused by alcohol. Alcohol overdosage is usually due to an underlying emotional or psychiatric problem. You may benefit from counselling. If "binge" drinking is an ongoing problem for you, or if you drink ANY AMOUNT of alcohol EVERY day, you most likely have a tendency to alcoholism. You should avoid alcohol totally. We can refer you for treatment. Persons with alcohol problems are often also prone to other addictions -- you should discuss any use of medications or drugs with the doctor. You should be watched at home for the next several hours by someone who has not been drinking. Get extra fluids for the next 24 hours. Call the doctor if there is repeated vomiting, increasing headache, decreasing level of alertness, or any other worsening. CHRONIC ALCOHOLISM and ALCOHOL ABUSE: (Due to history) Your evaluation reveals evidence of chronic alcoholism, an addiction to alcohol. The tendency to alcoholism may be inherited. Chronic use of alcohol weakens muscles, causes fatty deposits in the liver , damages the stomach, makes you more prone to infections, and can cause defects in unborn children. In the long run, brain atrophy and cirrhosis of the liver result. You are also at greater risk for certain types of cancer, such as cancer of the mouth, throat, stomach, and liver. Counselling services are available to help you. In-hospital treatment programs often help. Support groups such as Alcoholics Anonymous can be very useful in beating this addiction. Your physician can make a referral for you. As alcoholics often are prone to other addictions, you should discuss your use of any other medications with the doctor. ALCOHOL WITHDRAWAL: Your symptoms are caused by alcohol withdrawal. After a period of frequent drinking, the brain and body are changed by the alcohol. When you quit or reduce your drinking, the nervous system becomes unstable. Withdrawal symptoms can start a few hours after your last drink, but sometimes don't begin until a couple of days later. Symptoms can include shakiness, sweating, insomnia, nausea , vomiting, fearfulness, hallucinations, and seizures. In addition to the acute effects of alcohol withdrawal, we often have to deal with the medical effects of alcoholism. These problems often include dehydration, stomach irritation, intestinal bleeding, low blood sugar, liver disease, and pancreas inflammation. Treatment for alcohol withdrawal includes mild sedatives, vitamins, and fluids. You need to be with someone who can help if symptoms become severe. Many patients can withdraw at home. Admission to the hospital or a detox facility may be necessary if withdrawal symptoms are severe and uncontrollable. Abstaining from alcohol is the only effective long-term treatment. If you start drinking again, you will not be able to control yourself after the first drink. Treatment programs are available. In addition, many alcoholics benefit from Alcoholics Anonymous or other support groups available through your counselor or muslim office administration. [facility]ON and A[facility] are support groups for friends and family members of an alcoholic. Go to the emergency room if you develop persistent vomiting, severe abdominal pain, fever, shortness of breath, hallucinations, uncontrollable tremors, or seizures. DEPRESSION: Your evaluation reveals that you have mental depression. While symptoms may be vague, they often include disturbance of sleep, fatigue, loss of appetite , and general loss of interest in life. While depression may be a side effect of drugs, or a reaction to a major change in your life, many cases have no known cause. If depression is acute, and related to a major loss in your life, you can expect it to clear completely with time. If you have been depressed a long time , are prone to repeated bouts of depression or low mood, or have been thinking of suicide, get help. Depression can be treated with anti-depressant medication and counselling. Long-term depression will often take a few weeks to clear, even with appropriate medication. Follow-up care is important. SUICIDAL IDEATION: Suicidal ideation is a common medical term for thoughts about suicide, which may be as detailed as a formulated plan, without the suicidal act itself. Although most people who undergo suicidal ideation do not commit suicide, some go on to make suicide attempts. The range of suicidal ideation varies greatly from fleeting to detailed planning, role playing, and unsuccessful attempts. While thoughts about suicide are common, most people do not carry out serious actions to commit suicide. Based upon your evaluation and discussion with you, we do not believe you are currently at risk to act upon your thoughts of suicide. You have agreed to return to the Emergency Department, at any time , if you feel inclined to act upon your suicidal thoughts. FOLLOW-UP CARE: It is recommended you follow up with [facility] mobile [facility] Management ([facility]) for voluntary alcohol detox. You have been provided with the mental health outpatient resource sheet which highlighted the [facility] number for you (they can be used for crisis, talk therapy, detox placement and linkage to other services). Given your report of withdrawal symptom of seizures in the past is is highly recommended you seek medical detox. You should use natural supports (muslim) as well as professional supports ([facility], other civilian mental health resource which you can find on the local resource sheet provided, Alcoholics Anonymous). If you experience worsening or a significant change in your symptoms, notify the physician immediately, utilize mobile crisis or return to the Emergency Department at any time for re-evaluation. Referrals: [facility] [Outside] - Follow up as needed
[2018-06-10 17:57] LABS: ACETAMINOPHEN < 10 ug/mL (10-30); ANION GAP 23 (5-19); SALICYLATE < 1.0 mg/dL (2.0-20.0)
[2018-06-10 17:59] LABS: ALCOHOL 427 mg/dL (NONE DETECTED)
[2018-06-10] MEDS ORDERED: ZIPRASIDONE MESYLATE INJ/PF 20 MG SDV IM ONE (20:01)
[2018-06-10] MEDS ORDERED: DEXTROSE 5%-1/2 NORMAL SALINE 1,000 ML IV ONE (21:37)
--- NOTE | 2018-06-10 21:52 | EKG REPORT ---
SEVERITY:- ABNORMAL ECG - SINUS TACHYCARDIA LEFT ANTERIOR FASCICULAR BLOCK : Confirmed by: Kathya Carnes MD 10-Jun-2018 21:51:36
[2018-06-11] MEDS ORDERED: LORAZEPAM 1 MG TABLET PO ONE (04:20)
[2018-06-11] MEDS ORDERED: LORAZEPAM 1 MG TABLET PO PRN (04:22)
--- NOTE | 2018-06-11 04:22 | ER Document Report ---
Doctor's Note Notes: 06/11/18 04:21 Patient is having some increasing agitation, CIWA is 15, patient will be given Ativan 2 mg by mouth. Patient in moderate withdrawal.
[2018-06-11 09:18] VITALS: BP 120/65
--- NOTE | 2018-06-11 10:18 | ER Document Report ---
Doctor's Note Notes: 06/11/18 10:16 Rounds: Chart reviewed and patient interviewed. Patient being observed for alcohol withdrawal. Patient says he was sober for about 8 months and began to experience various tensions in his life recently and started back drinking about a week ago. He has a girlfriend who has a daughter that the patient has been attempting to help raise, but recently, his girlfriend has been advising him that he needs to get a job and get out of the house more, etc. Patient says he thinks he is probably going to have to leave that relationship. Vital signs are all normal. Lab studies were normal except for an alcohol level of 427. Patient is alert and cooperative and is medically stable for transfer or discharge. Kassy Beach MD
--- NOTE | 2018-06-11 16:25 | PSYCHOLOGICAL NOTE ---
Psych Note - Psych Note Date seen by psych provider: 06/11/18 Time seen by psych provider: 10:35 - Physical chart review at 0710, [employer] chart review at 1017, Evaluation lasted until 1100 Psych Note: Reason for Consult: 24 Hour Petition, ETOH abuse/withdrawal, SI, Depression, PTSD History ([place]) Contact Permissions: Unknown Patient is a 43 year old male in the ED for ETOH intoxication/abuse/withdrawal, SI, depression, PTSD history ([place]). Serum Alcohol Level was 427 upon arrival to ED (06/10/18 at 1705). Chart review revealed he has been seen at [facility] since 2014 for alcohol related issues (Serum Alcohol Level has been 389 and 321 in 2017, 311 in 2016). He was last seen by the [facility] behavioral health team on where he was discharged and instructed to follow up with residential program and [employer] as supports. He has [facility] Benefits. Today patient said he was Okay when asked how he felt. He denied current SI, did not recall making any SI statement last evening, admitted he had been frustrated with self for relapse, said he has never attempted SI and has never thought it. He stated he was embarrassed and talked about his appearance (apologized to this clinician and commented being in the presence of a good looking woman, also was concerned about appearance for trying to utilize [employer] friend for a ride). 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 He acknowledged he knows he had been drinking a lot since he filled a huge trash bag with empty wine bottles he found mainly scattered across the kitchen floor, that it was so heavy he could barely carry it out to the trash can. He said when I relapse I relapse bad, its like an allergic reaction, I cant stop. He noted having both older and younger male friends from [employer], his 19 year old son in [place] and going to the Gym as coping skills. He stated he is looking forward to all that and the [employer] Program as well as school. He stated he has Court on 06/21/18, was adamant he could not miss it and mentioned it was for breaking and entering (following it up with it is just so stupid). He stated he came to the ED for withdrawal concerns related to pain in left arm that made both fingers numb and heart racing. He acknowledged a seizure history with alcohol withdrawal. He denied being [facility] with the local [facility] currently, said he had in the past and commented he really didnt like the [facility]. He acknowledged he has full 100% VA disability. Patient was alert and oriented to person, place, and situation. He had to ask what the date was, knew there was 31 days in May and knew he had a court date coming up in June. He knew he relapsed on a Sunday however unclear what Sunday that was (so at least a week of likely binge drinking). Mood was euthymic with congruent affect. He denied current SI/HI as well as history of attempts. He did not appear to be responding to internal stimuli as evidenced by fair eye contact, answering questions appropriately when addressed, staying on topic, carrying on dialogue conversation and being engaged in evaluation. Thought processes were organized and linear. Conversational speech was within normal limits for rate, tone and prosody. Intellectual abilities are estimated to be average. Insight, judgment and impulse control were fair as evidenced by sober and no longer under the influence of alcohol, as well as linear/organized thinking. Attending nurse noted patient had not had any Ativan since 424, he denied withdrawal symptoms with the exception of one hand being shaky, he ate breakfast , he was able to sit up in bed and he ambulated to the restroom. Diagnosis: V61.10 (Z63.0) Relationship Distress with Significant Other 303.00 (F10.229) Alcohol intoxication, With Use Disorder, Severe 309.81 (F43.10) Posttraumatic Stress Disorder by History (per initial ED screening) Impression/Plan: Patient is cleared from acute psychiatric services. Recommendation to rescind 24 hour IVC Petition. He denied current SI/HI, history of attempts, there was no observed psychosis and he had time to sober up from alcohol intoxication. He noted his primary concern was alcohol withdrawal. Recommended patient use [facility] for voluntary alcohol detox given history of withdrawal seizures. Provided patient with outpatient MH resource sheet which highlighted [facility] for crisis, talk therapy, detox placement and linkage to other services. Patient stated he would have [facility] meet them at his home. He was encouraged to participate in some sort of programming after detox whether at the [facility] or one of the other civilian locations on outpatient resource sheet. Consulted with Dr. Hong regarding the management and care of patient. ED Physician in agreement with recommendations.
== END 2018-06-11 11:59 | disposition home or self-care (01) ==
LOC: ER 15:40
DX: F10.230 Alcohol dependence with withdrawal, uncomplicated (principal); F10.220 Alcohol dependence with intoxication, uncomplicated; Y90.8 Blood alcohol level of 240 mg/100 ml or more; F32.9 Major depressive disorder, single episode, unspecified; F43.10 Post-traumatic stress disorder, unspecified; F41.9 Anxiety disorder, unspecified; R00.0 Tachycardia, unspecified; R45.4 Irritability and anger; R45.1 Restlessness and agitation; Z63.0 Problems in relationship with spouse or partner
CPT/HCPCS: 93005; 99291; 96372; 96361; 96374; 36415; 80307 ×4; 85025; 80053; 81001; 93010; J2060; J3486

== ENCOUNTER → 2019-10-04 | Outpatient (CLI) | payer OTHER ==
[2019-10-04 12:53] LABS: ALBUMIN 4.3 g/dL (3.5-5.0); ALKALINE PHOSPHATASE 79 U/L (38-126); ANION GAP 8 (5-19); ASPARTATE AMINO TRANSFERASE 23 U/L (17-59); BILIRUBIN,DIRECT 0.2 mg/dL (0.0-0.4); BILIRUBIN,TOTAL 0.5 mg/dL (0.2-1.3); BLOOD UREA NITROGEN 17 mg/dL (7-20); CALCIUM 9.3 mg/dL (8.4-10.2); CARBON DIOXIDE 26 mmol/L (22-30); CHLORIDE 106 mmol/L (98-107); GLUCOSE 103 mg/dL (75-110); POTASSIUM 4.4 mmol/L (3.6-5.0); TOTAL PROTEIN 7.6 g/dL (6.3-8.2)
== END ==
LOC: OD 12:02
DX: E83.51 Hypocalcemia (principal); D64.9 Anemia, unspecified
CPT/HCPCS: 36415; 80053; 82306; 82607; 84443

== ENCOUNTER → 2019-10-13 | Outpatient (CLI) | payer OTHER ==
--- NOTE | 2019-10-13 22:32 | RADIOLOGY REPORT (SQ) ---
EXAM DESCRIPTION: DUPLEX VENOUS ULTRASOUND OF THE RIGHT LOWER EXTREMITY CLINICAL HISTORY: 44 years, Male, EDEMA COMPARISON: None. FINDINGS: Duplex imaging of the deep venous system of the right lower extremity was performed with visualization from the common femoral vein into the calf. There is normal spontaneous, phasic flow, augmentation and compressibility without visualized thrombus of the right common femoral, proximal deep femoral, femoral, popliteal, posterior tibial and peroneal veins.. Patent great and small saphenous veins as imaged. IMPRESSION: No evidence of deep or superficial venous thrombosis of the right lower extremity.
== END ==
LOC: SP 17:25
PROVIDERS: ATTEND Orthopaedic Surgery
DX: M25.561 Pain in right knee (principal); R60.0 Localized edema
CPT/HCPCS: 93971

== ENCOUNTER → 2020-01-21 | Outpatient (CLI) | payer OTHER ==
[2020-01-21 13:58] LABS: FREE T4 (FREE THYROXINE) 1.06 ng/dL (0.78-2.19)
[2020-01-21 14:12] LABS: THYROID STIMULATING HORMONE 18.2 uIU/mL (0.47-4.68)
== END ==
LOC: OD 11:14
PROVIDERS: ATTEND Internal Medicine Endocrinology, Diabetes & Metabolism
DX: E89.0 Postprocedural hypothyroidism (principal)
CPT/HCPCS: 36415; 84439; 84443

== ENCOUNTER → 2020-05-25 | Outpatient (CLI) | payer OTHER ==
[2020-05-25 09:30] LABS: ABSOLUTE EOSINOPHILS # (AUTO) 0.2 10^3/uL (0.0-0.6); ABSOLUTE LYMPHOCYTES (AUTO) 2.1 10^3/uL (0.5-4.7); ABSOLUTE MONOCYTES (AUTO) 0.5 10^3/uL (0.1-1.4); ABSOLUTE NEUT (AUTO) 5.4 10^3/uL (1.7-8.2); BASOPHILS % (AUTO) 0.5 % (0-2); EOSINOPHILS % (AUTO) 2.1 % (0-6); HEMATOCRIT 41.7 % (37.9-51.0); HEMOGLOBIN 14.4 g/dL (13.5-17.0); LYMPHOCYTES % (AUTO) 25.9 % (13-45); MEAN CORPUSCULAR HEMOGLOBIN 31.1 pg (27.0-33.4); MEAN CORPUSCULAR HGB CONC 34.6 g/dL (32.0-36.0); MEAN CORPUSCULAR VOLUME 90 fl (80-97); MONOCYTES % (AUTO) 6.1 % (3-13); PLATELET COUNT 194 10^3/uL (150-450); RED BLOOD COUNT 4.64 10^6/uL (4.35-5.55); RED CELL DISTRIBUTION WIDTH 15.1 % (11.5-14.0); SEGMENTED NEUTROPHILS % (AUTO) 65.4 % (42-78); TOTAL CELLS COUNTED % (AUTO) 100 %; WHITE BLOOD COUNT 8.2 10^3/uL (4.0-10.5)
[2020-05-26 08:38] LABS: FOLLICLE STIMULATING HORMONE 2.7 mIU/mL (1.5-12.4); LUTEINIZING HORMONE 2.2 mIU/mL (1.7-8.6)
[2020-05-26 09:05] LABS: PROLACTIN 11.3 ng/mL (4.0-15.2)
[2020-05-26 13:42] LABS: INSULIN-LIKE GROWTH FACTOR I 203 ng/mL (81-263)
== END ==
LOC: OD 08:33
PROVIDERS: ATTEND Internal Medicine Endocrinology, Diabetes & Metabolism
DX: E89.0 Postprocedural hypothyroidism (principal); Z83.41 Family history of multiple endocrine neoplasia [MEN] syndrome
CPT/HCPCS: 36415; 83001; 83002; 84146; 84153; 84305; 84402; 84403; 85025

== ENCOUNTER → 2020-08-05 | Outpatient (CLI) | payer OTHER ==
[2020-08-05 08:26] LABS: ABSOLUTE EOSINOPHILS # (AUTO) 0.2 10^3/uL (0.0-0.6); ABSOLUTE LYMPHOCYTES (AUTO) 2.4 10^3/uL (0.5-4.7); ABSOLUTE MONOCYTES (AUTO) 0.6 10^3/uL (0.1-1.4); ABSOLUTE NEUT (AUTO) 4.7 10^3/uL (1.7-8.2); BASOPHILS % (AUTO) 0.6 % (0-2); HEMATOCRIT 41.5 % (37.9-51.0); HEMOGLOBIN 14.2 g/dL (13.5-17.0); LYMPHOCYTES % (AUTO) 30.5 % (13-45); MEAN CORPUSCULAR HEMOGLOBIN 31.1 pg (27.0-33.4); MEAN CORPUSCULAR HGB CONC 34.2 g/dL (32.0-36.0); MEAN CORPUSCULAR VOLUME 91 fl (80-97); MONOCYTES % (AUTO) 7.1 % (3-13); PLATELET COUNT 217 10^3/uL (150-450); RED BLOOD COUNT 4.57 10^6/uL (4.35-5.55); RED CELL DISTRIBUTION WIDTH 14.1 % (11.5-14.0); SEGMENTED NEUTROPHILS % (AUTO) 59.8 % (42-78); TOTAL CELLS COUNTED % (AUTO) 100 %; WHITE BLOOD COUNT 7.9 10^3/uL (4.0-10.5)
[2020-08-05 09:06] LABS: FREE T4 (FREE THYROXINE) 1.76 ng/dL (0.78-2.19)
[2020-08-05 09:20] LABS: THYROID STIMULATING HORMONE 0.39 uIU/mL (0.47-4.68)
== END ==
LOC: OD 07:04
PROVIDERS: ATTEND Internal Medicine Endocrinology, Diabetes & Metabolism
DX: E29.1 Testicular hypofunction (principal); E89.0 Postprocedural hypothyroidism
CPT/HCPCS: 36415; 82306; 84153; 84402; 84403; 84439; 84443; 85025